=== PATIENT | male | born 1995 | race Two or more races ===

== ENCOUNTER 2017-04-20 22:11 | Emergency (ER) | payer MEDICAID ==
[~2017-04-20] VITALS: Ht 177.8 cm; Wt 68.0 kg
[2017-04-20 22:27] VITALS: BP 155/95
[2017-04-21] MEDS ORDERED: LIDOCAINE 1% HCL (LOCAL ANESTH.) INJ 20ML MDV ONE ×2 (01:13→02:43)
== END 2017-04-21 02:47 | disposition left against medical advice (07) ==
LOC: ER 22:11
DX: M79.641 Pain in right hand (principal); Z53.21 Procedure and treatment not carried out due to patient leaving prior to being seen by health care provider
CPT/HCPCS: 73130; J2001

== ENCOUNTER 2018-11-14 09:56 | Emergency (ER) | payer MEDICAID ==
[~2018-11-14] VITALS: Ht 177.8 cm; Wt 74.8 kg
[2018-11-14 10:02] VITALS: BP 125/68
== END 2018-11-14 11:52 | disposition home or self-care (01) ==
LOC: ER 10:01
DX: J03.90 Acute tonsillitis, unspecified (principal)

== ENCOUNTER 2019-05-06 14:23 | Emergency (ER) | payer MEDICAID ==
[~2019-05-06] VITALS: Ht 175.3 cm; Wt 77.1 kg
[2019-05-06 16:26] VITALS: BP 127/83
== END 2019-05-06 17:36 | disposition home or self-care (01) ==
LOC: ER 14:23
DX: J06.9 Acute upper respiratory infection, unspecified (principal)